=== PATIENT | male | born 1985 | race African-American/Black ===

== ENCOUNTER 2017-09-16 23:09 | Emergency (ER) | payer MEDICAID ==
[~2017-09-16] VITALS: Ht 185.4 cm; Wt 80.0 kg
[2017-09-16] MEDS ORDERED: LATA2.5D3 EACHEYE (23:16)
[2017-09-16] MEDS ORDERED: FAMOTIDINE 20 MG/2 ML ONE (23:25)
[2017-09-16] MEDS ORDERED: ONDANSETRON 2MG/ML, 2ML ONE (23:25)
[2017-09-16 23:29] LABS: HEMATOCRIT 46.3 % (39.2-51.8); HEMOGLOBIN 15.4 g/dL (13.7-18.0)
[2017-09-16] MEDS ORDERED: SODIUM CHLORIDE FLUSH 10ML SYR IVF ONE (23:30)
[2017-09-16] MEDS ORDERED: ONDANSETRON 2MG/ML, 2ML IVPush ONE (23:30)
[2017-09-16] MEDS ORDERED: FAMOTIDINE 20 MG/2 ML IVP ONE (23:30)
[2017-09-16] MEDS ORDERED: SODIUM CHLORIDE 0.9% 1,000ML IVBOLUS ONE (23:30)
[2017-09-16 23:41] LABS: ASPARTATE AMINO TRANSFERASE 32 U/L (15-37); BLOOD UREA NITROGEN 12 mg/dL (7-18)
[2017-09-17 01:22] VITALS: BP 139/91
== END 2017-09-17 01:21 | disposition home or self-care (01) ==
LOC: ED 23:39
DX: R10.84 Generalized abdominal pain (principal); R11.2 Nausea with vomiting, unspecified; R50.9 Fever, unspecified
CPT/HCPCS: 36415; 80053; 83690; 85025; 96374; 96375; 99284; J2405; J7030; S0028

== ENCOUNTER 2017-09-30 16:03 | Emergency (ER) | payer MEDICAID ==
[~2017-09-30] VITALS: Ht 185.4 cm; Wt 71.5 kg
[~2017-09-30 16:03] MED LIST: LATA2.5D3 EACHEYE
[2017-09-30 16:14] VITALS: BP 106/68
[2017-09-30] MEDS ORDERED: KETOROLAC 30 MG/1 ML ONE (16:44)
[2017-09-30] MEDS ORDERED: KETOROLAC 30 MG/1 ML IM ONE (17:00)
[2017-09-30] MEDS ORDERED: METHOCARBAMOL 750 MG TABLET ONE (17:07)
[2017-09-30] MEDS ORDERED: PLEASE ENTER ALLERGIES MC SCH ×2 (17:30)
[2017-09-30] MEDS ORDERED: METHOCARBAMOL 750 MG TABLET PO ONE (17:30)
== END 2017-09-30 17:59 | disposition home or self-care (01) ==
LOC: ED 16:55
DX: M54.6 Pain in thoracic spine (principal); M62.830 Muscle spasm of back
CPT/HCPCS: 72050; 96372; 99284; J1885

== ENCOUNTER 2018-05-19 00:41 | Emergency (ER) | payer MEDICAID, OTHER ==
[~2018-05-19] VITALS: Ht 185.4 cm; Wt 73.0 kg
[2018-05-19 00:46] VITALS: BP 114/67
[2018-05-19] MEDS ORDERED: [UNRECOGNIZED DRUG - OTHER] (00:50)
[2018-05-19] MEDS ORDERED: IBUPROFEN 200 MG TABLET ONE (01:05)
[2018-05-19] MEDS ORDERED: LIDOCAINE-MPF 2% ,5ML ONE (01:28)
[2018-05-19] MEDS ORDERED: IBUPROFEN 200 MG TABLET PO ONE (01:30)
[2018-05-19] MEDS ORDERED: TRIAMCINOLONE ACETONIDE 40 MG/ML, 1ML IM ONE (01:30)
[2018-05-19] MEDS ORDERED: LIDOCAINE-MPF 1%, 5ML INFIL ONE (01:30)
== END 2018-05-19 01:48 | disposition home or self-care (01) ==
LOC: ED 01:40
DX: M65.4 Radial styloid tenosynovitis [de Quervain] (principal); Z87.891 Personal history of nicotine dependence
CPT/HCPCS: 99284

== ENCOUNTER 2018-08-06 10:23 | Emergency (ER) | payer MEDICAID ==
[~2018-08-06] VITALS: Ht 185.4 cm; Wt 78.0 kg
[~2018-08-06 10:23] MED LIST changes: +[UNRECOGNIZED DRUG - OTHER]
[2018-08-06 10:36] VITALS: BP 95/68
[2018-08-06] MEDS ORDERED: METHOCARBAMOL 750 MG TABLET ONE (11:16)
[2018-08-06] MEDS ORDERED: IBUPROFEN 200 MG TABLET ONE (11:16)
[2018-08-06] MEDS ORDERED: IBUPROFEN 800 MG TABLET PO ONE (11:30)
[2018-08-06] MEDS ORDERED: METHOCARBAMOL 750 MG TABLET PO ONE (11:30)
== END 2018-08-06 11:23 | disposition home or self-care (01) ==
LOC: ED 11:11
DX: G89.29 Other chronic pain (principal); M54.5 Low back pain
CPT/HCPCS: 99283

== ENCOUNTER 2019-04-02 05:25 | Emergency (ER) | payer MEDICAID ==
[~2019-04-02] VITALS: Ht 188 cm; Wt 75.2 kg
[2019-04-02 05:27] VITALS: BP 109/64
--- NOTE | 2019-04-02 05:34 | NUR ---
PT AMBULATES FROM TRIAGE TO ROOM WITH STEADY GAIT.
[2019-04-02] MEDS ORDERED: DIAZEPAM 5 MG TABLET ONE (05:49)
[2019-04-02] MEDS ORDERED: KETOROLAC 30 MG/1 ML ONE (05:49)
--- NOTE | 2019-04-02 05:57 | NUR ---
PT MEDICATED PER DEC FOR PAIN. PT RESTING IN [facility] AT THIS TIME.
[2019-04-02] MEDS ORDERED: DIAZEPAM 5 MG TABLET PO ONE (06:00)
[2019-04-02] MEDS ORDERED: KETOROLAC 30 MG/1 ML IM ONE (06:00)
== END 2019-04-02 07:01 | disposition home or self-care (01) ==
LOC: ED 06:39
DX: S39.012A Strain of muscle, fascia and tendon of lower back, initial encounter (principal); M54.42 Lumbago with sciatica, left side; X58.XXXA Exposure to other specified factors, initial encounter; Y93.89 Activity, other specified; Y92.89 Other specified places as the place of occurrence of the external cause; Y99.8 Other external cause status
CPT/HCPCS: 96372; 99283; J1885

== ENCOUNTER 2019-09-15 04:35 | Emergency (ER) | payer MEDICAID ==
[~2019-09-15] VITALS: Ht 188 cm; Wt 72.4 kg
[2019-09-15] MEDS ORDERED: LORazepam 1MG TABLET ONE (04:58)
[2019-09-15] MEDS ORDERED: LORazepam 1MG TABLET PO ONE (05:00)
[2019-09-15 05:20] LABS: BASOPHILS # (AUTO) 0.02 x10^3/uL (0-0.1); BASOPHILS % (AUTO) 1 % (0-1); EOSINOPHILS # (AUTO) 0.02 x10^3/uL (0-0.4); EOSINOPHILS % (AUTO) 0 % (1-7); LYMPHOCYTES # (AUTO) 1.87 x10^3/uL (1-3.4); LYMPHOCYTES % (AUTO) 36 % (22-44); MD NO; MEAN CORPUSCULAR HEMOGLOBIN 29.8 pg (27.5-34.5); MEAN CORPUSCULAR HGB CONC 33.4 g/dL (33.2-36.2); MEAN CORPUSCULAR VOLUME 89.4 fL (81-97); MEAN PLATELET VOLUME 8.4 fL (7.4-10.4); MONOCYTES # (AUTO) 0.45 x10^3/uL (0.2-0.8); MONOCYTES % (AUTO) 9 % (2-9); NEUTROPHILS # (AUTO) 2.84 x10^3/uL (1.8-6.8); NEUTROPHILS % (AUTO) 54 % (42-75); PLATELET COUNT 276 x10^3/uL (130-400); RED BLOOD COUNT 5.87 x10^6/uL (4.38-5.82); RED CELL DISTRIBUTION WIDTH 13.4 % (9.4-14.8)
--- NOTE | 2019-09-15 05:29 | NUR ---
PT WITH SI, NO PLAN. STATES HE HAS BEEN FEELING BAD FOR A FEW DAYS. PT WIH ISSUES IN HIS SOCIAL LIFE. PT STATES HE WANTS TO TALK TO SOMEONE ABOUT HIS TROUBLES.
[2019-09-15 05:30] LABS: ALBUMIN 4.5 g/dL (3.4-5.0); ANION GAP 11 mmol/L (5-15); CALCIUM 9.2 mg/dL (8.5-10.1); CHLORIDE 106 mmol/L (98-107); CREATININE 0.96 mg/dL (0.7-1.3); SALICYLATE LEVEL 3.3 mg/dL (2.8-20.0)
[2019-09-15 05:42] LABS: AMPHETAMINE SCREEN, URINE Positive (Negative); BARBITURATE SCREEN, URINE Negative (Negative); BENZODIAZEPINE SCREEN, URINE Negative (Negative); CANNABINOID SCREEN, URINE Positive (Negative); COCAINE SCREEN, URINE Negative (Negative); METHADONE SCREEN, URINE Negative (Negative); OPIATE SCREEN, URINE Negative (Negative)
--- NOTE | 2019-09-15 06:50 | NUR ---
REPORT TO BENIGNO BARCLAY
[2019-09-15 07:10] VITALS: BP 115/68
--- NOTE | 2019-09-15 07:33 | NUR ---
PT RESTING ON GURNEY, GIVEN WATER PER REQUEST. PT DENIES SI, STATES HE "JUST WANT TO TALK TO SOMEONE WHO WILL LISTEN TO ME, I HAVE A LOT OF PERSONAL THINGS GOING ON RIGHT NOW." NELSY CASTILLO NOTED.
--- NOTE | 2019-09-15 09:07 | NUR ---
PT BREATHYLZED 0.039. PT CONTINUES TO DENY SI, PT STATES HE IS JUST A "LITTLE STRESSED OUT LATELY", PT WANTING TO GO HOME. PT NOT ON A LEGAL HOLD. PT NOT WANTING TO WAIT TO SPEAK TO MD, PT STATES "I JUST WANT TO GO HOME". PT LEFT
== END 2019-09-15 09:22 | disposition home or self-care (01) ==
LOC: ED 05:44
DX: F32.9 Major depressive disorder, single episode, unspecified (principal); F10.129 Alcohol abuse with intoxication, unspecified; Y90.0 Blood alcohol level of less than 20 mg/100 ml
CPT/HCPCS: 36415; 80048; 80307; 82040; 85025; 99284

== ENCOUNTER 2020-07-25 23:53 | Emergency (ER) | payer MEDICAID ==
[~2020-07-25] VITALS: Ht 185.4 cm; Wt 73.0 kg
[2020-07-26] MEDS ORDERED: SODIUM CHLORIDE FLUSH 10ML SYR IVF ONE
--- NOTE | 2020-07-26 00:10 | NUR ---
BIBA. A&o x4, answering questions appropriately. Spouse at bedside with verbal consent from pt. MD at bedside upon EMS arrival. Per EMS, pt began having atraumatic, non-radiating L-sided chest pain at approx 2230. Pt describes pain as, "it feels like it's tight and right over my heart. It's like something is eating my heart." NSR noted on monitor upon arrival to ED. Pt states vomiting "a ton of times today" with diffuse abd tenderness. Abd soft, flat, non-distended. Pt also states chills x1 day, did not take temp at home. Denies SOB. Denies URENA. States normal BM. Denies cardiac hx. EMS gave 324 asa, 4 mg zofran, nitro x1 with no effect. Able to ambulate from EMS to ED stretcher independently, steady gait. Report given to primary RN
--- NOTE | 2020-07-26 00:10 | NUR ---
Report received from BENIGNO Diaz. All monitoring in place, NSR on awake overnight monitor, VSS, patient verbalizes mild discomfort at this time, ERP in room during eval. Call light in reach
[2020-07-26 00:35] LABS: ALBUMIN 3.9 g/dL (3.4-5.0); ANION GAP 11 mmol/L (5-15); CALCIUM 8.9 mg/dL (8.5-10.1); CHLORIDE 105 mmol/L (98-107); CREATININE 1.02 mg/dL (0.7-1.3)
[2020-07-26 00:36] LABS: BASOPHILS # (AUTO) 0.01 x10^3/uL (0-0.1); BASOPHILS % (AUTO) 0 % (0-1); EOSINOPHILS # (AUTO) 0.03 x10^3/uL (0-0.4); EOSINOPHILS % (AUTO) 1 % (1-7); LYMPHOCYTES # (AUTO) 0.82 x10^3/uL (1-3.4); LYMPHOCYTES % (AUTO) 14 % (22-44); MD NO; MEAN CORPUSCULAR HEMOGLOBIN 29.6 pg (27.5-34.5); MEAN CORPUSCULAR HGB CONC 34.1 g/dL (33.2-36.2); MEAN PLATELET VOLUME 8.5 fL (7.4-10.4); MONOCYTES # (AUTO) 0.12 x10^3/uL (0.2-0.8); MONOCYTES % (AUTO) 2 % (2-9); NEUTROPHILS # (AUTO) 4.92 x10^3/uL (1.8-6.8); NEUTROPHILS % (AUTO) 83 % (42-75); PLATELET COUNT 274 x10^3/uL (130-400); RED BLOOD COUNT 4.92 x10^6/uL (4.38-5.82); RED CELL DISTRIBUTION WIDTH 12.7 % (9.4-14.8)
[2020-07-26 00:39] LABS: TROPONIN I < 0.015 ng/mL (0.000-0.045)
--- NOTE | 2020-07-26 01:14 | NUR ---
Patient resting on gurney, respirations even and unlabored. VSS, NADN. Call light in reach. Secondary troponin to be drawn at 0300.
[2020-07-26] MEDS ORDERED: KETOROLAC 30 MG/1 ML ONE (01:17)
--- NOTE | 2020-07-26 01:24 | NUR ---
Patient medicated per emar, tolerated well
[2020-07-26] MEDS ORDERED: KETOROLAC 30 MG/1 ML IVPush ONE (01:30)
--- NOTE | 2020-07-26 02:10 | NUR ---
Patient resting on gurney, respirations even and unlabored. SARAH CASTILLO. Call light in reach.
--- NOTE | 2020-07-26 02:51 | NUR ---
Report given to BENIGNO Diaz. Plan of care discussed. Second troponin to be drawn at 0300. Report also given to BENIGNO Murphy break RN for Emily.
[2020-07-26 03:43] LABS: TROPONIN I < 0.015 ng/mL (0.000-0.045)
[2020-07-26 04:12] VITALS: BP 99/61
--- NOTE | 2020-07-26 04:13 | NUR ---
D/c instructions and f/u care discussed with pt and spouse. Pt states he is getting new PCP this week and will return to ED with changing/worsening sx. Ambulating independently, steady gait. REMSA IV removed, catheter in tact upon removal.
== END 2020-07-26 04:14 | disposition home or self-care (01) ==
LOC: ED 07-26 01:29
DX: R07.2 Precordial pain (principal); I45.10 Unspecified right bundle-branch block
CPT/HCPCS: 36415; 71045; 80048; 82040; 84484; 85025; 93005; 96374; 99285; J1885

== ENCOUNTER 2020-08-01 18:11 | Emergency (ER) | payer MEDICAID ==
[~2020-08-01] VITALS: Ht 185.4 cm; Wt 68.0 kg
[2020-08-01 18:14] VITALS: BP 97/70
[2020-08-01] MEDS ORDERED: IBUPROFEN 800 MG TABLET PO STA (19:12)
[2020-08-01] MEDS ORDERED: IBUPROFEN 800 MG TABLET ONE (19:20)
== END 2020-08-01 19:45 | disposition home or self-care (01) ==
LOC: ED 19:00
DX: S90.31XA Contusion of right foot, initial encounter (principal); Z87.891 Personal history of nicotine dependence; X58.XXXA Exposure to other specified factors, initial encounter; Y93.89 Activity, other specified; Y92.098 Other place in other non-institutional residence as the place of occurrence of the external cause; Y99.8 Other external cause status
CPT/HCPCS: 99284

== ENCOUNTER 2020-11-03 04:40 | Emergency (ER) | payer MEDICAID ==
[~2020-11-03] VITALS: Ht 185.4 cm; Wt 71.8 kg
[~2020-11-03 04:40] MED LIST changes: -LATA2.5D3 EACHEYE; +LATA2.5D4 EACHEYE
[2020-11-03 04:43] VITALS: BP 143/86
[2020-11-03] MEDS ORDERED: LORazepam 1MG TABLET PO ONE (05:00)
[2020-11-03] MEDS ORDERED: LORazepam 1MG TABLET ONE (05:08)
--- NOTE | 2020-11-03 05:15 | NUR ---
PT HERE WITH ANXIETY OVER LACK OF MONEY AND SOCIAL ISSUES. PT VERY TEARFUL. PT MEDICATED FOR ANXIETY AND GIVEN A BLANKET. CALL LIGHT IN REACH
--- NOTE | 2020-11-03 06:00 | NUR ---
PT GIVEN SOME SUPPLIES TO HELP. PT SEEMS TO BE DOING BETTER. WILL BE DISCHARGED.
--- NOTE | 2020-11-03 06:19 | NUR ---
Patient given discharge instructions and they have confirmed that they understand the instructions. Patient ambulatory with steady gait.
== END 2020-11-03 06:27 | disposition home or self-care (01) ==
LOC: ED 06:21
DX: F41.1 Generalized anxiety disorder (principal)
CPT/HCPCS: 99283

== ENCOUNTER 2020-12-04 22:39 | Emergency (ER) | payer MEDICAID ==
[~2020-12-04] VITALS: Ht 193 cm; Wt 76.4 kg
--- NOTE | 2020-12-04 22:52 | NUR ---
INITIAL PT CONTACT. PT C/O BODY ACHES, HEADACHE, N/V/D, CHILLS X 3 DAYS. ALSO C/O RIGHT KNEE PAIN AND SWELLING. SLIGHT COUGH, NO SOB. PT SITTING UPRIGHT ON GURNEYSARAH, VSS. PT ANXIOUS. CALL LIGHT AND PERSONAL BELONGINGS WITHIN REACH. ERP AT BEDSIDE.
[2020-12-04 23:15] LABS: MEAN CORPUSCULAR HEMOGLOBIN 30.4 pg (27.5-34.5); MEAN CORPUSCULAR HGB CONC 34.5 g/dL (33.2-36.2); MEAN PLATELET VOLUME 7.5 fL (7.4-10.4); PLATELET COUNT 260 x10^3/uL (130-400); RED BLOOD COUNT 4.75 x10^6/uL (4.38-5.82); RED CELL DISTRIBUTION WIDTH 13.6 % (9.4-14.8)
[2020-12-04 23:26] LABS: ALANINE AMINOTRANSFERASE 22 U/L (12-78); ALBUMIN 3.3 g/dL (3.4-5.0); ANION GAP 7 mmol/L (5-15); CALCIUM 8.4 mg/dL (8.5-10.1); CHLORIDE 112 mmol/L (98-107); CREATININE 0.88 mg/dL (0.7-1.3)
[2020-12-04 23:28] LABS: ALKALINE PHOSPHATASE 110 U/L (45-117); BILIRUBIN,TOTAL 0.3 mg/dL (0.2-1.0); TOTAL PROTEIN 7.4 g/dL (6.4-8.2)
[2020-12-04 23:48] LABS: MD YES
[2020-12-04 23:50] LABS: EOS#(MANUAL) 0.33 x10^3/uL (0.0-0.4); EOS% (MANUAL) 9 % (1-7); LYMPH#(MANUAL) 1.41 x10^3/uL (1-3.4); LYMPHS% (MANUAL) 38 % (22-44); MONOS#(MANUAL) 0.26 x10^3/uL (0.3-2.7); MONOS% (MANUAL) 7 % (2-9); SEGS% (MANUAL) 46 % (42-75)
[2020-12-04 23:52] LABS: <PLATELET ESTIMATE> ADEQUATE; <PLT MORPHOLOGY> NORMAL PLT MORPH; <RBC MORPHOLOGY> NORMAL
--- NOTE | 2020-12-05 00:02 | NUR ---
PT TO BATHROOM WITH STEADY GAIT. PT HAS NO ADDITIONAL NEEDS AT THIS TIME. CALL LIGHT IN REACH. AWAITING D/C
[2020-12-05 00:03] VITALS: BP 135/52
--- NOTE | 2020-12-05 00:09 | NUR ---
Patient given discharge instructions and they have confirmed that they understand the instructions. Patient ambulatory with steady gait.
== END 2020-12-05 00:11 | disposition home or self-care (01) ==
LOC: ED 23:21
DX: B34.9 Viral infection, unspecified (principal); R10.13 Epigastric pain; R51.9 Headache, unspecified; R05 Cough; M79.10 Myalgia, unspecified site
CPT/HCPCS: 36415; 71045; 80053; 85025; 99284

== ENCOUNTER 2021-01-19 01:03 | Emergency (ER) | payer MEDICAID ==
[~2021-01-19] VITALS: Ht 185.4 cm; Wt 72.5 kg
[2021-01-19] MEDS ORDERED: LORazepam 1MG TABLET PO ONE ×2 (01:30→07:00)
[2021-01-19] MEDS ORDERED: LORazepam 1MG TABLET ONE ×2 (01:32→06:51)
[2021-01-19 01:40] LABS: BASOPHILS % (AUTO) 1 % (0-1); EOSINOPHILS % (AUTO) 3 % (1-7); LYMPHOCYTES % (AUTO) 39 % (22-44); MEAN CORPUSCULAR HGB CONC 34.5 g/dL (33.2-36.2); MEAN PLATELET VOLUME 7.6 fL (7.4-10.4); MONOCYTES % (AUTO) 15 % (2-9); NEUTROPHILS % (AUTO) 41 % (42-75); PLATELET COUNT 294 x10^3/uL (130-400); RED BLOOD COUNT 5.08 x10^6/uL (4.38-5.82); RED CELL DISTRIBUTION WIDTH 13.2 % (9.4-14.8)
[2021-01-19 01:41] LABS: MD NO
[2021-01-19 01:48] LABS: ALBUMIN 3.8 g/dL (3.4-5.0); ANION GAP 6 mmol/L (5-15); CALCIUM 8.4 mg/dL (8.5-10.1); CHLORIDE 110 mmol/L (98-107); CREATININE 0.99 mg/dL (0.7-1.3); SALICYLATE LEVEL < 1.7 mg/dL (2.8-20.0)
--- NOTE | 2021-01-19 01:50 | NUR ---
PT RESTING IN ER BED, PT ROOM SI SECURE. SITTER AT PT DOOR. PT DENIED ANY CURRENT WANTS OR NEEDS AT THIS TIME.
[2021-01-19 01:59] LABS: AMPHETAMINE SCREEN, URINE Negative (Negative); BARBITURATE SCREEN, URINE Negative (Negative); BENZODIAZEPINE SCREEN, URINE Negative (Negative); CANNABINOID SCREEN, URINE Positive (Negative); COCAINE SCREEN, URINE Negative (Negative); METHADONE SCREEN, URINE Negative (Negative); OPIATE SCREEN, URINE Negative (Negative)
--- NOTE | 2021-01-19 04:15 | NUR ---
PT SLEEPING IN ER BED, PT ROOM SI SECURE. SITTER AT PT DOOR. PT DENIED ANY CURRENT WANTS OR NEEDS AT THIS TIME.
--- NOTE | 2021-01-19 04:41 | NUR ---
PT STATED"HE HAS STOMACH PAIN FOR THE LAST 3 DAYS AND HE WANTED A MEDICATION FOR IT
[2021-01-19] MEDS ORDERED: MAALOX/HYOSCYAMINE/LIDOCAINE 45 ML BTL ONE (05:19)
[2021-01-19] MEDS ORDERED: MAALOX/HYOSCYAMINE/LIDOCAINE 45 ML BTL PO ONE (05:30)
--- NOTE | 2021-01-19 06:48 | NUR ---
PT RESTLESS IN BED, PT REQUESTED A MEDICATION TO HELP WITH HIS ANXIETY. PROVIDER NOTIFIED.
--- NOTE | 2021-01-19 07:29 | NUR ---
REPORT FROM BENIGNO IBARRA. PSYCH TUBE SORTER ON TELEPSYCH MONITOR ALERTING PT TO PROVIDERS UPCOMING ASSESSMENT APPROXIMATELY 1 HOUR AGO. NO CALL OF YET. DISCUSSION WITH ERMD REGARDING CALL, WHO IS AWARE OF DELAY. PT'S FRIEND/ROOM MATE/ENVIRONMENTAL QUALITY ANALYST CALLED FOR UPDATE ON PT. PT ABLE TO TALK WITH HER REGARDING PT'S VISIT AND REPORTS FRIEND'S ABILITY TO REMAIN WITH CHILD DESPITE LENGTH OF STAY. PLATING OPERATOR AND ERMD AWARE OF CHILD. ENVIRONMENTAL QUALITY ANALYST PROVIDED FALSE NAME AND PHONE NUMBER.
--- NOTE | 2021-01-19 07:54 | NUR ---
[facility]PS CALLED FOR PT'S CHILD, WHO IS REPORTEDLY AT HOME WITH WOMAN WHOS RELATIONSHIP TO PT AND CHILD IS UNSPECIFIC FROM PT. SITTER OUTSIDE OF ROOM FOR DIRECT PT OBSERVATION AND Q15 MIN SAFETY CHECKS.
[2021-01-19 08:32] VITALS: BP 115/77
--- NOTE | 2021-01-19 08:55 | NUR ---
SI MEAL TRAY PROVIDED. NAD NOTED AT THIS TIME. AWAITING TELE PSYCH. BACK DIGGER OPERATOR TO CALL FOR ETA. SITTER OUTSIDE OF ROOM FOR DIRECT OBSERVATION AND Q15 MIN SAFETY CHECKS.
--- NOTE | 2021-01-19 09:14 | NUR ---
TELEPSYCH CANCELLED BY , TANNER VALDOVINOS WILL BE COMING TO ASSESS PT. SITTER OUTSIDE OF ROOM FOR DIRECT OBSERVATION AND Q15 MIN SAFETY CHECKS.
[2021-01-19] MEDS ORDERED: DICYCLOMINE 20 MG TABLET ONE (09:37)
--- NOTE | 2021-01-19 09:47 | NUR ---
TANNER VALDOVINOS AT BEDSIDE FOR ASSESSMENT OF PT. SHORTLY BEFORE ARUNA ARRIVED, PT CAME OUT ASKING FOR BELONGINGS AND SAYING THAT HE NEEDED TO LEAVE. PT EDUCATED ON LEGAL HOLD. VERBALIZES UNDERSTANDING. REPORTS THAT HE THOUGHT HE COULDN'T BE CONSIDERED SUICIDAL UNLESS HE HAD A PLAN. PT EDUCATED ON SUICIDE PREVENTION AND SCREENING. SITTER OUTSIDE OF ROOM FOR DIRECT OBSERVATION AND Q15 MIN SAFETY CHECKS.
[2021-01-19] MEDS ORDERED: DICYCLOMINE 20 MG TABLET PO ONE (10:00)
--- NOTE | 2021-01-19 10:32 | NUR ---
LUIS GARLAND AT BEDSIDE TO DISCUSS CPS CALL, AND LOCAL RESOURCES. PT VERBALIZES UNDERSTANDING.
== END 2021-01-19 10:40 | disposition home or self-care (01) ==
LOC: ED 06:22
DX: R45.851 Suicidal ideations (principal); F10.10 Alcohol abuse, uncomplicated; F12.10 Cannabis abuse, uncomplicated; Z72.9 Problem related to lifestyle, unspecified; Z87.891 Personal history of nicotine dependence; Y90.0 Blood alcohol level of less than 20 mg/100 ml
CPT/HCPCS: 36415; 80048; 80143; 80179; 80307; 80320; 82040; 85025; 99285; G0480